=== PATIENT | female | born 1950 | race Caucasian/White ===

== ENCOUNTER 2017-04-26 15:19 | Emergency (ER) | payer MEDICARE, MEDICAID ==
[~2017-04-26] VITALS: Ht 157.5 cm; Wt 53.5 kg
--- NOTE | 2017-04-26 15:41 | NUR ---
PT IS IN ROOM #2B. DR FUNK EVALUATED THE PT.
[2017-04-26 17:54] LABS: CARBON DIOXIDE 24 mmol/L (21-32); CHLORIDE 110 mmol/L (98-107); CREATININE 2.6 mg/dL (0.6-1.3); GLUCOSE 94 mg/dL (74-106); POTASSIUM 4.7 mmol/L (3.5-5.1); UREA NITROGEN, BLOOD 56 mg/dL (7-18)
[2017-04-26 17:55] LABS: BASOPHILS # (AUTO) 0.1 K/uL (0.0-8.0); BASOPHILS % (AUTO) 1.2 % (0.0-2.0); EOSINOPHILS # (AUTO) 0.2 K/uL (0.0-0.7); EOSINOPHILS % (AUTO) 3.6 % (0.0-7.0); HEMATOCRIT 25.1 % (31.2-41.9); HEMOGLOBIN 7.8 g/dL (10.9-14.3); LYMPHOCYTES # (AUTO) 1.9 K/uL (20.0-40.0); LYMPHOCYTES % (AUTO) 32.7 % (20.5-51.5); MEAN CORPUSCULAR HGB CONC 31 g/dL (32.3-35.6); MEAN CORPUSCULAR VOLUME 60.8 fL (75.5-95.3); MONOCYTES # (AUTO) 0.3 K/uL (2.0-10.0); MONOCYTES % (AUTO) 5.5 % (0.0-11.0); NEUTROPHILS # (AUTO) 3.4 K/uL (1.8-8.9); PLATELET COUNT (AUTO) 203 K/uL (179-408); RED BLOOD CELL COUNT(AUTO) 4.13 MIL/uL (3.63-4.92); WHITE BLOOD COUNT (AUTO) 5.9 K/uL (3.8-11.8)
[2017-04-26 17:57] LABS: ETHANOL < 3 MG/DL (0-0)
--- NOTE | 2017-04-26 18:07 | NUR ---
CRISIS SHIATSU THERAPIST LINNETTE EVALUATED THE PT ACCORDING TO DR BLESSING CALLAHAN.
[2017-04-26 18:08] LABS: THYROID STIMULATING HORMONE 1.878 mIU/mL (0.358-3.740)
[2017-04-26 18:09] LABS: ALANINE AMINOTRANSFERASE 24 U/L (14-59); ALKALINE PHOSPHATASE 114 U/L (50-136); ASPARTATE AMINOTRANSFERASE 23 U/L (15-37); BILIRUBIN,DIRECT 0.1 mg/dL (0.0-0.2); BILIRUBIN,TOTAL 0.5 mg/dL (0.2-1.0); TOTAL PROTEIN, SERUM 6.6 g/dL (6.4-8.2)
[2017-04-26 18:18] LABS: ACETAMINOPHEN < 2.0 ug/mL (10-30)
[2017-04-26 18:23] LABS: *BILIRUBIN,URIN NEGATIVE (NEGATIVE); *BLOOD, URINE NEGATIVE (NEGATIVE); *CLARITY,URINE CLEAR (CLEAR); *COLOR,URINE YELLOW (YELLOW); *KETONES,URINE NEGATIVE (NEGATIVE); *PROTEIN,URINE 2+ (NEGATIVE); *UROBILINOGEN,URINE 0.2 E.U./dl (NORMAL); LEUKOCYTE ESTERASE ,URINE NEGATIVE (NEGATIVE); NITRITE, URINE NEGATIVE (NEGATIVE); UGLUCOSE NEGATIVE (NEGATIVE)
--- NOTE | 2017-04-26 18:30 | NUR ---
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 DR FUNK AND DR SINGH NOTIFIED.
[2017-04-26 18:31] LABS: *AMPHETAMINE, URINE NEGATIVE (NEGATIVE); *BARBITURATE, URINE NEGATIVE (NEGATIVE); *CANNABINOID, URINE NEGATIVE (NEGATIVE); *COCCAINE, URINE NEGATIVE (NEGATIVE); *OPIATE, URINE NEGATIVE (NEGATIVE); *PHENCYCLIDINE SCREEN,URINE NEGATIVE (NEGATIVE)
[2017-04-26 18:32] LABS: BACTERIA,URINE NONE SEEN /HPF (NONE SEEN); RBC,URINE 0-3 /HPF (0-3); SQUAMOUS EPITHELIAL CELL,UR FEW /HPF (NONE SEEN); WBC,URINE 0-3 /HPF (0-3)
--- NOTE | 2017-04-26 18:48 | NUR ---
PT REFUSED TO DO ECG TEST. DR SINGH TALKED TO THE PT. PT STRONGLY REFUSED ECG TEST AND OTHER TESTS. PT LEFT HOSPITAL AMA. DR SINGH EXPLAINED ALL RISKS OF LEAVING HOSPITAL AMA TO THE PT. PT VERBALISED FULL UNDERSTANDING.
[2017-04-26 19:02] VITALS: BP 141/92
== END 2017-04-26 19:06 | disposition left against medical advice (07) ==
LOC: ER 15:21
DX: I25.2 Old myocardial infarction (principal); I21.3 ST elevation (STEMI) myocardial infarction of unspecified site; N28.9 Disorder of kidney and ureter, unspecified; I10 Essential (primary) hypertension; E11.9 Type 2 diabetes mellitus without complications; Z88.8 Allergy status to other drugs, medicaments and biological substances; Z91.048 Other nonmedicinal substance allergy status; Z91.018 Allergy to other foods
CPT/HCPCS: 36415; 70450; 72125; 80048; 80076; 80307; 81001; 82140; 83605; 84443; 84484; 85025; 85730; 87040 ×2; 87086; 93005; 99285; A4663; G0480 ×2; G0481; 70030-TC

== ENCOUNTER 2017-04-29 22:52 | Emergency (ER) | payer MEDICARE, MEDICAID ==
[~2017-04-29] VITALS: Ht 157.5 cm; Wt 52.2 kg
[2017-04-29] MEDS ORDERED: [UNRECOGNIZED DRUG - OTHER] (23:23)
[2017-04-29] MEDS ORDERED: HYDROCORTISONE 25 MG (23:23)
--- NOTE | 2017-04-29 23:41 | NUR ---
CLIENT REPORTS SHE IS HOMELESS AND HAS SPENT HER MONEY ON 3 NIGHTS HOTEL STAY. TODAY SHE FEELS SOB AND DIZZY, SHE AMBULATED WITHOUT BALANCE PROBLEM, RESPIRATIONS WERE EASY AND CTA. 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 MD TO EVALUATE AND DETERMINE AN APPROPRIATE DISPOSITION.
--- NOTE | 2017-04-30 00:20 | NUR ---
DEANDRA RAI AT BEDSIDE FOR MSE.
--- NOTE | 2017-04-30 01:05 | NUR ---
Patient discharged to home in stable conditon. Written and verbal after care instructions given. Patient verbalizes understanding of instructions. Pt ambulated from ER w/ steady gait. Pt took all personal belongings. Given resources for shelters.
[2017-04-30 01:33] VITALS: BP 136/72
== END 2017-04-30 01:34 | disposition home or self-care (01) ==
LOC: ER 22:53
DX: R42 Dizziness and giddiness (principal); I10 Essential (primary) hypertension; Z88.8 Allergy status to other drugs, medicaments and biological substances; Z91.048 Other nonmedicinal substance allergy status; Z79.899 Other long term (current) drug therapy
CPT/HCPCS: A4663